=== PATIENT | female | born 1965 | race Caucasian/White ===

== ENCOUNTER → 2020-05-03 | Outpatient (CLI) | payer OTHER ==
[2020-05-03 10:50] LABS: RED BLOOD COUNT 5.15 M/UL (4.00-5.10); WHITE BLOOD COUNT 5.4 K/UL (4.5-11.0)
[2020-05-04 17:11] LABS: AMPHETAMINES, URINE Negative ng/mL (Cutoff=1000); BARBITURATE Negative ng/mL (Cutoff=200); BENZODIAZEPINES Negative ng/mL (Cutoff=200); CANNABINOIDS Negative ng/mL (Cutoff=20); COCAINE (METABOLITE) Negative ng/mL (Cutoff=300); CREATININE 242.6 mg/dL (20.0-300.0); MEPERIDINE Negative ng/mL (Cutoff=200); METHADONE Negative ng/mL (Cutoff=300); OPIATES Negative ng/mL (Cutoff=300); PHENCYCLIDINE Negative ng/mL (Cutoff=25); PROPOXYPHENE Negative ng/mL (Cutoff=300)
[2020-05-05 11:16] LABS: CHOLESTEROL, TOTAL 250 mg/dL (100-199); HDL SIZE 10.5 nm (>=9.2); HDL-C 120 mg/dL (>39); HDL-P (TOTAL) 42.9 umol/L (>=30.5); LARGE HDL-P >20.0 umol/L (>=4.8); LARGE VLDL-P 2.1 nmol/L (<=2.7); LDL SIZE 21.4 nm (>20.5); LDL SIZE 21.4 nm (>=20.8); LDL-C 117 mg/dL (0-99); LDL-P 1070 nmol/L (<1000); LP-IR SCORE <25 (<=45); SMALL LDL-P <90 nmol/L (<=527); TRIGLYCERIDES 81 mg/dL (0-149); VLDL SIZE 49.3 nm (<=46.6)
== END ==
LOC: LAB 09:17
PROVIDERS: Emergency Medicine
DX: I10 Essential (primary) hypertension (principal); F41.1 Generalized anxiety disorder; Z79.899 Other long term (current) drug therapy
CPT/HCPCS: 36415; 80053; 80307; 85025

== ENCOUNTER 2020-07-19 10:39 | Emergency (ER) | payer OTHER ==
[2020-07-19 11:49] LABS: HEMOGLOBIN 14.2 gm/dl (12.3-15.3); RED BLOOD COUNT 4.9 M/UL (4.00-5.10); WHITE BLOOD COUNT 5.5 K/UL (4.5-11.0)
[2020-07-19 12:15] LABS: BUN/CREATININE RATIO 16 (0-10)
[2020-07-19 12:35] LABS: BORDETELLA PARAPERTUSSIS Not Detected (Not Detectd); BORDETELLA PERTUSSIS Not Detected (Not Detectd); CHLAMYDIA PNEUMONIAE Not Detected (Not Detectd); CORONAVIRUS HKU1 Not Detected (Not Detectd); CORONAVIRUS NL63 Not Detected (Not Detectd); CORONAVIRUS OC43 Not Detected (Not Detectd); CORONOAVIRUS 229E Not Detected (Not Detectd); HUMAN METAPNEUMOVIRUS Not Detected (Not Detectd); HUMAN RHINOVIRUS/ENTEROVIRUS Not Detected (Not Detectd); INFLUENZA A Not Detected (Not Detectd); INFLUENZA B Not Detected (Not Detectd); MYCOPLASMA PNEUMONIAE Not Detected (Not Detectd); PARAINFLUENZA VIRUS 1 Not Detected (Not Detectd); PARAINFLUENZA VIRUS 2 Not Detected (Not Detectd); PARAINFLUENZA VIRUS 3 Not Detected (Not Detectd); PARAINFLUENZA VIRUS 4 Not Detected (Not Detectd); RESPIRATORY SYNCYTIAL VIRUS Not Detected (Not Detectd)
[2020-07-19 13:43] LABS: SARS-CoV-2 NOT DETECTED (Not Detectd)
== END 2020-07-19 14:41 | disposition home or self-care (01) ==
LOC: ER1 10:39
PROVIDERS: Emergency Medicine
DX: J06.9 Acute upper respiratory infection, unspecified (principal); I10 Essential (primary) hypertension; Z88.8 Allergy status to other drugs, medicaments and biological substances; Z20.822 Contact with and (suspected) exposure to COVID-19
CPT/HCPCS: 71045; 80053; 82550; 82553; 83874; 84484; 85025; 85379; 87081; 87633; 87880; 93005; 99284